=== PATIENT | male | born 1995 | race Hispanic/Latino ===

== ENCOUNTER 2022-05-07 20:06 | Emergency (ER) | payer OTHER ==
[~2022-05-07] VITALS: Ht 177.8 cm; Wt 139.0 kg
== END 2022-05-07 22:30 | disposition home or self-care (01) ==
LOC: ED 20:06
DX: T23.231A Burn of second degree of multiple right fingers (nail), not including thumb, initial encounter (principal); Z23 Encounter for immunization; Z88.0 Allergy status to penicillin; X10.2XXA Contact with fats and cooking oils, initial encounter
CPT/HCPCS: 90471; 90715; 99283; A9270